=== PATIENT | female | born 1950 | race Caucasian/White ===

== ENCOUNTER 2018-08-13 11:40 | Inpatient (IN) | payer MEDICARE ==
[~2018-08-13] VITALS: Ht 167.6 cm; Wt 134.3 kg
[~2018-08-13 11:40] MED LIST: APRISO0.375 GM PO; ASPIR 8181 MG PO; ATORVASTATIN CA40 MG PO; B COMPLEX1 EACH PO; BENTYL20 MG PO; CALTRATE 600 W1 EACH PO; CITALOPRAM HBR40 MG PO; CLOPIDOGREL75 MG PO; DEMADEX20 MG PO; FERROCITE324 MG PO; FORTAMET1000 MG PO; HUMALOG MI100 UNIT/2 SQ; HYDROCODON-ACE1 EA11 PO; K DUR10 MEQ PO; LISINOPRIL20 MG PO; MAG-OXIDE400 MG PO; METOPROLOL SUCC50 MG PO; MICROZIDE12.5 MG PO; NEURONTIN300 MG PO; PANTOPRAZOLE SO20 MG PO; PEPCID40 MG PO; VALIUM5 MG PO
[2018-08-13 15:48] LABS: BASOPHILS # (AUTO) 0.1 (0.0-0.1); BASOPHILS % 0.5 % (0.0-1.0); EOSINOPHILS # (AUTO) 0.3 (0.0-0.4); EOSINOPHILS % 2.5 % (0.0-6.0); HEMATOCRIT 24.5 % (34.2-44.1); LYMPHOCYTES # (AUTO) 2.4 (1.0-3.2); LYMPHOCYTES % 20.3 % (18.0-39.1); MEAN CORPUSCULAR HEMOGLOBIN 15.8 pg (28-32); MEAN CORPUSCULAR HGB CONC 24.5 g/dL (31-35); MEAN CORPUSCULAR VOLUME 64.5 fL (81-99); MONOCYTES # (AUTO) 0.8 (0.2-0.8); MONOCYTES % 6.7 % (4.4-11.3); NEUTROPHILS # (AUTO) 8.1 (2.1-6.9); NEUTROPHILS % 69.4 % (38.7-80.0); PLATELET COUNT 368 x10e3/uL (140-360); RED CELL DISTRIBUTION WIDTH 22.5 % (11.7-14.4)
--- NOTE | 2018-08-13 15:48 | Diagnostic Imaging Report ---
A single frontal view of the chest. HISTORY: Low hemoglobin COMPARISON: None available. DISCUSSION: Portable technique, limits sensitivity of the exam. Soft tissue attenuation partially limits sensitivity of the exam, especially the lung bases. Tubes/Lines: None Lungs and pleura: The lungs are well inflated. No evidence of a consolidative pneumonia or pulmonary alveolar edema. No definite pleural effusion or pneumothorax is identified. Heart and mediastinum: The cardiac silhouette appears enlarged. Bones and soft tissues: Appear unremarkable, given this limited exam. IMPRESSION: 1. Probable cardiomegaly. 2. No acute radiographic abnormality, within the stated limitations. If further evaluation is warranted, recommend routine PA and lateral chest radiographs when feasible. Signed by: Dr. Yaron Najera D.O., M.M.M. on 08/13/2018 3:45 PM
--- NOTE | 2018-08-13 15:52 | NUR ---
JANINE FROM LAB CALLED TO [facility] 6.0/24.5. DR. PRAKASH INFORMED OF THIS WELL KARINA, RN PRIMARY NURSE FOR PT.
[2018-08-13 16:00] LABS: INR 0.96; PROTHROMBIN TIME 13.7 seconds (11.9-14.5)
[2018-08-13] MEDS ORDERED: ONDANSETRON HCL INJ 2MG/ML 2ML 2 MG/ML VIAL IV PRN (16:00)
[2018-08-13] MEDS ORDERED: SODIUM CHLORIDE 0.9% 1000ML 1,000 ML IV ONE (16:00)
[2018-08-13 16:01] LABS: PARTIAL THROMBOPLASTIN TIME 28.5 seconds (23.8-35.5)
--- NOTE | 2018-08-13 16:05 | Diagnostic Imaging Report ---
EXAM: CT of the abdomen and pelvis WITHOUT contrast HISTORY: Right flank pain, one week COMPARISON: None available. TECHNIQUE: The abdomen and pelvis were scanned utilizing a multidetector helical scanner. Coronal and sagittal reformats are available. PROTOCOL: Renal colic IV CONTRAST: None, which limits sensitivity and specificity of evaluation of the soft tissues and vascular structures. ORAL CONTRAST: None, which limits sensitivity and specificity of evaluation of the bowel. RADIATION DOSE: Total DLP: 845.35 mGy*cm Estimated effective dose: (DLP x 0.015 x size factor) Dose modulation, iterative reconstruction, and/or weight based adjustment of the mA/kV was utilized to reduce the radiation dose to as low as reasonably achievable. COMPLICATIONS: None FINDINGS: Soft tissue attenuation partially limits sensitivity of the exam. LOWER THORAX: Unremarkable. HEPATOBILIARY: No definite focal hepatic lesions. No biliary ductal dilatation. The gallbladder is not visualized, correlate for prior cholecystectomy. SPLEEN: No splenomegaly. Metallic densities at the hilum of the spleen, correlate for prior vascular intervention, associated beam hardening artifact partially limits regional evaluation. PANCREAS: No focal masses or ductal dilatation. ADRENALS: Fullness of the left adrenal gland, without a discrete well-defined nodule. KIDNEYS/URETERS: No hydronephrosis. Punctate calcification near the inferior pole of the left kidney. PELVIC ORGANS/BLADDER: The visualized pelvic organs appear unremarkable. PERITONEUM / RETROPERITONEUM: No free air or fluid. GI TRACT: On limited evaluation of the gastrointestinal tract, no dilation or wall thickening identified. The appendix is not visualized, correlate for prior cholecystectomy, but no pericecal inflammatory changes to suggest acute appendicitis. Postsurgical changes of the proximal stomach. LYMPH NODES: No pathologically enlarged lymph nodes. VESSELS: Diffuse scattered atherosclerotic vascular calcifications. BONES: No aggressive osseous lesion or acute fracture. Multilevel degenerative changes of the axial skeleton, most notably moderate facet arthrosis at L4-5 and L5-S1. SOFT TISSUES: Moderate diffuse muscle atrophy. IMPRESSION: 1. No acute CT abnormality, specifically no right renal stone or hydronephrosis. 2. Incidentally, a punctate nonobstructing left renal stone. Signed by: Dr. Yaron Najera D.O., M.M.M. on 08/13/2018 4:02 PM
[2018-08-13 16:06] LABS: ANION GAP 14.2 mmol/L (8-16); CALCIUM 8.8 mg/dL (8.4-10.2); CREATININE, SERUM 0.99 mg/dL (0.57-1.11); POTASSIUM 4.2 mmol/L (3.5-5.1)
[2018-08-13 16:13] LABS: CREATINE KINASE MB 0.5 ng/mL (0-5.0)
[2018-08-13] MEDS: PANTOPRAZOLE 40 MG 10ML VIAL IV SCH (17:00)
[2018-08-13 17:02] LABS: FERRITIN 5.3 ng/mL (4.63-204.00)
[2018-08-13 17:09] LABS: BILIRUBIN,URINE NEGATIVE (NEGATIVE); CLARITY,URINE CLEAR (CLEAR); COLOR,URINE YELLOW (YELLOW); KETONES,URINE NEGATIVE (NEGATIVE); LEUKOCYTE ESTERASE ,URINE NEGATIVE (NEGATIVE); NITRITE,URINE NEGATIVE (NEGATIVE); PROTEIN,URINE DIPSTICK NEGATIVE (NEGATIVE); URINE UROBILINOGEN 0.2 mg/dL (0.2 - 1)
--- OUTSIDE RECORDS SUMMARY | 2018-08-13 17:16 | XMS REPORT ---
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 Allergies, Adverse Reactions, Alerts This patient has no known allergies or adverse reactions. Medications This patient has no known medications. Results Test Description Test Time Test Comments Text Results Atomic Results Result Comments CT ABDOMEN/PELVIS WO 2018-08-13 15:45:00 [place] [id number] [place] [id number] Patient Name: PATO MORALES MR #: [id number] : 1950 Age/Sex: 68/F Req #: [id number] Adm Physician: Ordered by: JUAN JOSÉ NAJERA DOCUMENT IMPROVEMENT SPECIALIST Report #: [id number] Location: ER Room/Bed: Procedure: [id number] CT/CT ABDOMEN/PELVIS WO Exam Date: 08/13/18 Exam Time: 1500 REPORT STATUS: Signed EXAM: CT of the abdomen and pelvis WITHOUT contrast HISTORY: Right flank pain, one week COMPARISON: None available. TECHNIQUE: The abdomen and pelvis were scanned utilizing a multidetector helical scanner. Coronal and sagittal reformats are available. PROTOCOL: Renal colic IV CONTRAST: None, which limits sensitivity and specificity of evaluation of the soft tissues and vascular structures. ORAL CONTRAST: None, which limits sensitivity and specificity of evaluation of the bowel. RADIATION DOSE: Total DLP: 845.35 mGy*cm Estimated effective dose: (DLP x 0.015 x size factor) Dose modulation, iterative reconstruction, and/or weight based adjustment of the mA/kV was utilized to reduce the radiation dose to as low as reasonably achievable. COMPLICATIONS: None FINDINGS: Soft tissue attenuation partially limits sensitivity of the exam. LOWER THORAX: Unremarkable. HEPATOBILIARY: No definite focal hepatic lesions. No biliary ductal dilatation. The gallbladder is not visualized, correlate for prior cholecystectomy. SPLEEN: No splenomegaly. Metallic densities at the hilum of the spleen, correlate for prior vascular intervention, associated beam hardening artifact partially limits regional evaluation. PANCREAS: No focal masses or ductal dilatation. ADRENALS: Fullness of the left adrenal gland, without a discrete well-defined nodule. KIDNEYS/URETERS: No hydronephrosis. Punctate calcification near the inferior pole of the left kidney. PELVIC ORGANS/BLADDER: The visualized pelvic organs appear unremarkable. PERITONEUM / RETROPERITONEUM: No free air or fluid. GI TRACT: On limited evaluation of the gastrointestinal tract, no dilation or wall thickening identified. The appendix is not visualized, correlate for prior cholecystectomy, but no pericecal inflammatory changes to suggest acute appendicitis. Postsurgical changes of the proximal stomach. LYMPH NODES: No pathologically enlarged lymph nodes. VESSELS: Diffuse scattered atherosclerotic vascular calcifications. BONES: No aggressive osseous lesion or acute fracture. Multilevel degenerative changes of the axial skeleton, most notably moderate facet arthrosis at L4-5 and L5-S1. SOFT TISSUES: Moderate diffuse muscle atrophy. IMPRESSION: 1. No acute CT abnormality, specifically no right renal stone or hydronephrosis. 2. Incidentally, a punctate nonobstructing left renal stone. Signed by: Graeme WattsO., M.M.M. on 08/13/2018 4:02 PM Dictated By: PATRICIA NAJERA DO 1602 Transcribed By: JES on 08/13/18 1602 COPY TO: JUAN JOSÉ NAJERA NP CHEST SINGLE (NOT PORTABLE) 2018-08-13 15:43:00 [place] [address] Patient Name: PATO MORALES MR #: [id number] : 1950 Age/Sex: 68/F Req #: [id number] [facility] Physician: Ordered by: JUAN JOSÉ NAJERA NP Report #: [id number] Location: ER Room/Bed: Procedure: [id number] DX/CHEST SINGLE (NOT PORTABLE) Exam Date: 08/13/18 Exam Time: 1450 REPORT STATUS: Signed A single frontal view of the chest. HISTORY: Low hemoglobin COMPARISON: None available. DISCUSSION: Portable technique, limits sensitivity of the exam. Soft tissue attenuation partially limits sensitivity of the exam, especially the lung bases. Tubes/Lines: None Lungs and pleura: The lungs are well inflated. No evidence of a consolidative pneumonia or pulmonary alveolar edema. No definite pleural effusion or pneumothorax is identified. Heart and mediastinum: The cardiac silhouette appears enlarged. Bones and soft tissues: Appear unremarkable, given this limited exam. IMPRESSION: 1. Probable cardiomegaly. 2. No acute radiographic abnormality, within the stated limitations. If further evaluation is warranted, recommend routine PA and lateral chest radiographs when feasible. Signed by: Dr. Patricia Najera D.O., M.M.M. on 08/13/2018 3:45 PM Dictated By: PATRICIA NAJERA DO 1545 Transcribed By: TIAGO CONTRERAS on 08/13/18 1545 COPY TO: JUAN JOSÉ NAJERA NP
[2018-08-13 17:18] LABS: EPITHELIAL CELLS,URINE MODERATE /LPF
[2018-08-13] MEDS: HYDROCODONE/APAP 5MG-325MG TAB PO PRN ×2 (17:20→23:54)
[2018-08-13 19:37] VITALS: BP 140/61
[2018-08-13 20:00] VITALS: BP 140/61
--- NOTE | 2018-08-13 21:10 | NUR ---
PATIENT RECEIVED FROM EMERGENCY DEPARTMENT PER STRETCHER AT 1936; SHE'S ALERT AND ORIENTED X4, NO RESPIRATORY DISTRESS OBSERVED. SKIN INTEGRITY INTACT, BRUISE NOTED TO THE RIGHT HAND. 1+ PITTING EDEMA NOTED TO THE LOWER EXTREMITIES, NO ACTIVE BLEEDING OBSERVED UPON HEAD TO TOE ASSESSMENT. PATIENT DENIES PAIN, BLOOD TRANSFUSION INFUSING ORDERED AND NO ADVERSE EFFECT NOTED. ORIENTED TO SURROUNDINGS, CALL LIGHT WITHIN EASY REACH, WILL CONTINUE TO CLOSELY MONITOR THE PATIENT.
--- NOTE | 2018-08-13 22:16 | NUR ---
BLOOD TRANSFUSION COMPLETED WITHOUT ADVERSE EFFECT, PATIENT WAS ASSISTED TO THE RESTROOM BY STAFF NURSES AND NO DISTRESS NOTED.
[2018-08-13] MEDS ORDERED: SODIUM CHLORIDE 0.9% 250ML 250 ML ONE (23:05)
--- NOTE | 2018-08-13 23:31 | NUR ---
SECOND UNIT OF BLOOD TRANSFUSION STARTED, PRIMARY NURSE REMAINS WITH THE PATIENT FOR CLOSE OBSERVATION FOR THE FIRST 15 MINUTES.
[2018-08-14] VITALS (7 sets, daily range): BP systolic 141–159; BP diastolic 61–71
--- NOTE | 2018-08-14 02:25 | NUR ---
PATIENT SITTING AT THE SIDE OF THE BED, SHE REQUESTED THAT HER BED ALARM BE TURN OFF. BLOOD TRANSFUSION COMPLETED, NO ADVERSE EFFECT OBSERVED.
[2018-08-14 06:40] LABS: BASOPHILS # (AUTO) 0.1 (0.0-0.1); BASOPHILS % 0.8 % (0.0-1.0); EOSINOPHILS # (AUTO) 0.4 (0.0-0.4); EOSINOPHILS % 3.9 % (0.0-6.0); HEMATOCRIT 26.8 % (34.2-44.1); HEMOGLOBIN 7.1 g/dL (12.0-16.0); LYMPHOCYTES # (AUTO) 1.4 (1.0-3.2); LYMPHOCYTES % 15.6 % (18.0-39.1); MEAN CORPUSCULAR HEMOGLOBIN 17.8 pg (28-32); MEAN CORPUSCULAR HGB CONC 26.5 g/dL (31-35); MONOCYTES # (AUTO) 0.9 (0.2-0.8); MONOCYTES % 9.7 % (4.4-11.3); NEUTROPHILS # (AUTO) 6.3 (2.1-6.9); NEUTROPHILS % 69.4 % (38.7-80.0); PLATELET COUNT 299 x10e3/uL (140-360); RED CELL DISTRIBUTION WIDTH 24.6 % (11.7-14.4)
[2018-08-14 06:51] LABS: ALANINE AMINOTRANSFERASE 12 IU/L (0-55); ALBUMIN 2.8 g/dL (3.5-5.0); ALBUMIN/GLOBULIN RATIO 0.9 (0.8-2.0); ALKALINE PHOSPHATASE 126 IU/L (40-150); ANION GAP 12.9 mmol/L (8-16); BLOOD UREA NITROGEN 11 mg/dL (7-26); BUN/CREATININE RATIO 12 (6-25); CALCIUM 8.7 mg/dL (8.4-10.2); CARBON DIOXIDE 25 mmol/L (22-29); CHLORIDE 102 mmol/L (98-107); CREATININE, SERUM 0.91 mg/dL (0.57-1.11); EST GLOMERULAR FILTRATION RATE > 60 ML/MIN (60-); GLUCOSE 75 mg/dL (74-118); POTASSIUM 3.9 mmol/L (3.5-5.1); SODIUM 136 mmol/L (136-145)
--- NOTE | 2018-08-14 07:09 | NUR ---
DR CARLSON WAS ON THE UNIT TO SEE THE PATIENT, HE WAS MADE AWARE OF THE LAB RESULTS FOR THIS MORNING. NEW ORDERS RECEIVED.
[2018-08-14] MEDS ORDERED: NON-FORMULARY MEDICATION (Famotidine (Pepcid) 40 MG) PO SCH (07:30)
--- NOTE | 2018-08-14 07:31 | NUR ---
Received patient. Patient awake in bed resting at this time, no signs of distress. Bed in lowest position, wheels locked, side rails x2, call light in reach. Will continue to monitor.
--- NOTE | 2018-08-14 07:33 | History and Physical ---
This is a 68-year-old female that comes in with low H and H. HISTORY OF PRESENT ILLNESS: This is . Chantale Cantu who came to my office with extreme weakness, history of diabetes, history of hypertension, and was checked for anemia. Hemoglobin came back at 6.5. The patient was sent to the emergency room for possible transfusion and also for possible workup of anemia. The patient did have fatigue and tiredness, and also with history of taking aspirin and Plavix. PAST MEDICAL HISTORY: History of hypertension, history of uncontrolled diabetes mellitus, history of myocardial infarction in the past, history of coronary artery disease, history of chronic obstructive pulmonary disorder, history of low back pain, history of morbid obesity, history of smoking also. ALLERGIES: ALLERGIC TO SULFA AND CODEINE. SURGICAL HISTORY: History of skin cancer removal, history of cholecystectomy, tonsillectomy and adenoidectomy. MEDICATIONS: At home: 1. Aspirin 81 mg. 2. Atorvastatin 40 mg. 3. Calcium 600 mg daily. 4. Citalopram 40 mg daily. 5. Clopidogrel 75 mg daily. 6. Valium 5 mg daily. 7. Dicyclomine 20 mg daily. 8. Famotidine 40 mg. 9. Ferrous sulfate 324 mg daily. 10. Gabapentin 300 mg daily. 11. Hydrochlorothiazide 12.5 mg daily. 12. Hydrocodone 5 mg daily. 13. Insulin 70/25 quick pen 20 units twice a day. 14. Lisinopril 20 mg daily. 15. Magnesium oxide. 16. Mesalamine 0.375 mg ER capsule q.i.d. 17. Metformin 1000 mg. 18. Metoprolol 50 mg. 19. Potassium 10 mEq. 20. Furosemide 20 mg. 21. Vitamin B complex. The patient has a history of ulcerative colitis in the past and has been taking mesalamine too. FAMILY HISTORY: Positive for hypertension and hyperlipidemia. REVIEW OF SYSTEMS: Negative for chest pain. Positive for shortness of breath. No nausea, vomiting or diarrhea. No constipation. Positive for rectal bleeding. The patient has had 2 episodes in the last 2 weeks, small though. The patient has no diplopia and no blurry vision. No paresthesia and no hypoesthesia. No chest pains. PHYSICAL EXAMINATION GENERAL: Alert and oriented times 3. VITAL SIGNS: Temperature is 96.8, pulse of 76, respirations of 18, blood pressure is 150/64. HEENT: Normocephalic and atraumatic. Pupils are reactive to light and accommodation. CV: S1 and S2. Regular rate and rhythm. ABDOMEN: Tender in the epigastrium. Otherwise, no tenderness present. EXTREMITIES: No clubbing. Positive for trace edema. LABORATORY VALUES: Initial values are white count is 11.6, hemoglobin of 6, hematocrit of 24.5. Chemistry showed a sodium of 138, chloride of 103, BUN 13, creatinine 0.9, and GFR of 55. Iron panel: Iron was 15, TIBC 43%, saturation of 3%. Ferritin was 5.3. CK, CK-MB and troponin were all within normal limits. ASSESSMENT 1. Blood loss anemia, possibly rectal: An endoscopy is warranted. Will consult Dr. Beau Ramirez for colonoscopy. The patient will be started on Venofer at this time. Will need iron transfusion on an outpatient basis too. 2. Coronary artery disease: Will continue monitoring the patient's troponins. 3. Hypertension: Will restart her home medications. 4. Diabetes mellitus: Continue on insulin sliding scale. Also, restart on her hyperlipidemic agents. Further recommendations per clinical course. The patient also will get a clonidine patch for history of smoking. Further recommendations per clinical course. Will continue monitoring the patient along with consultants. Possibly will need outpatient based iron therapy too. Job#: [id number] KAREN
[2018-08-14 07:41] LABS: ANISOCYTOSIS MODE; HYPOCHROMASIA MODERATE; PLATELET ESTIMATE ADEQUATE; POLYCHROMASIA FEW; RBC MORPHOLOGY COMMENT ABNORMAL
[2018-08-14 07:42] LABS: PLATELET MORPHOLOGY COMMENT FEW LARGE; POIKILOCYTOSIS MODERATE
[2018-08-14] MEDS ORDERED: NON-FORMULARY MEDICATION (Citalopram Hydrobromide (Citalopram Hbr) 40 MG) PO SCH (09:00)
[2018-08-14] MEDS ORDERED: FERROUS FUMARATE 325 MG PO SCH (09:00)
[2018-08-14] MEDS ORDERED: NON-FORMULARY MEDICATION (Hydrochlorothiazide (Microzide) 12.5 MG) PO SCH (09:00)
[2018-08-14] MEDS ORDERED: NON-FORMULARY MEDICATION (Atorvastatin Calcium 40 MG) PO SCH (09:00)
[2018-08-14] MEDS ORDERED: METOPROLOL SUCCINATE 50 MG TAB XL PO SCH (09:00)
[2018-08-14] MEDS ORDERED: MAGNESIUM OXIDE 400 MG PO SCH (09:00)
[2018-08-14] MEDS ORDERED: METFORMIN HCL 1000 MG PO SCH (09:00)
[2018-08-14] MEDS ORDERED: TORSEMIDE 20 MG PO SCH (09:00)
[2018-08-14] MEDS: NICOTINE 21 MG/EA PATCH TOP PRN (09:10)
[2018-08-14] MEDS: IRON SUCROSE 100 MG in SODIUM CHLORIDE 0.9% 100 ML 100 ML IV SCH (09:37)
[2018-08-14] MEDS: LISINOPRIL 20 MG TAB PO SCH (09:37)
[2018-08-14] MEDS: GABAPENTIN 300 MG CAP PO SCH ×3 (09:37→21:39)
[2018-08-14] MEDS: FAMOTIDINE 20 MG TAB PO SCH ×2 (09:37→17:23)
[2018-08-14] MEDS: HYDROCHLOROTHIAZIDE 25 MG TAB PO SCH (09:37)
[2018-08-14] MEDS: TORSEMIDE 10 MG TAB PO SCH (09:37)
[2018-08-14] MEDS: MESALAMINE 0.375 GM CAPCR PO SCH ×4 (09:37→21:39)
[2018-08-14] MEDS: PANTOPRAZOLE 40 MG 10ML VIAL IV SCH ×3 (09:37→17:20)
[2018-08-14] MEDS: METFORMIN HCL 500 MG TAB PO SCH ×2 (09:37→17:20)
[2018-08-14] MEDS: POTASSIUM CHLORIDE 10MEQ EA PO SCH (09:37)
[2018-08-14] MEDS: CITALOPRAM HYDROBROMIDE 20 MG TAB PO SCH (09:37)
[2018-08-14] MEDS: MAGNESIUM OXIDE 400 MG TAB PO SCH (09:37)
[2018-08-14] MEDS: METOPROLOL SUCCINATE 25 MG TAB XL PO SCH ×2 (09:38→21:39)
[2018-08-14] MEDS: DIAZEPAM 5 MG TAB PO SCH (09:38)
[2018-08-14] MEDS: VITAMIN B COMPLEX PO SCH (09:48)
[2018-08-14] MEDS: HYDROCODONE/APAP 5MG-325MG TAB PO SCH (10:00)
--- NOTE | 2018-08-14 10:00 | NUR ---
Patient A/O X3, respirations even and unlabored on room air. Last BM 08/12/18, bowel sounds active. RAC 20 gauge IV saline lock at this time. Skin intact, non-pitting 1+ edema to BLE. Patient is up with assist. Will continue to monitor.
--- NOTE | 2018-08-14 19:00 | NUR ---
Received patient sitting on side of bed, aaox3 in stable condition. No needs voiced at this time. Dr. Ramirez recently in to see patient. Updated patient on plan of care, patient verbalized understanding. Bed locked and in lowest position, call light within easy reach. Will continue to monitor the patient closely.
--- NOTE | 2018-08-14 20:22 | Consultation ---
DATE OF CONSULTATION: August 14, 2018 GI CONSULT NOTE REFERRING PHYSICIAN: Glenn Farnsworth MD REASON FOR CONSULT: Symptomatic microcytic anemia. HISTORY OF PRESENTING ILLNESS: A 68-year-old very pleasant white female with past medical history of obesity status post gastric stapling surgery in 70s, type 2 diabetes, hypertension, who walked into Dr. Farnsworth's office with progressive shortness of breath, easy fatigability on minimal exertion. Blood work revealed significant anemia with a hemoglobin of 6.0, MCV 64.5. She denies any associated abdominal pain, melena, any episode of hematochezia. She is not on any blood thinner. She takes aspirin and Plavix for coronary artery disease. She has had upper endoscopy and colonoscopy more than 5 years ago. Patient does not know clear cut the reason why she has had a bidirectional endoscopy. She has a remote history of gastric ulcers in the past. She does not consume any NSAIDs chronically. She received 1 unit of packed red blood cells with which hemoglobin has gone up from 6 to 7.1. REVIEW OF SYSTEMS: Twelve-point system reviewed, symptomatology is limited as per HPI. PAST MEDICAL HISTORY: Type 2 diabetes, hypertension, hyperlipidemia, coronary artery disease, COPD, chronic low backache, history of morbid obesity. PAST SURGICAL HISTORY: Cholecystectomy, gastric stapling, tonsillectomy, adenoidectomy, some skin cancer removal. FAMILY HISTORY: Negative for any GI or GOVERNMENT DOCUMENTS LIBRARIAN malignancies. SOCIAL HISTORY: Former smoker. Seldom drinks alcohol. Never used any illicit drugs. ALLERGIES: PENICILLIN AND CODEINE. HOME MEDICATIONS: Aspirin, atorvastatin, calcium carbonate with vitamin D3, citalopram, clopidogrel, diazepam, dicyclomine, famotidine, ferrous fumarate, gabapentin, hydrochlorothiazide, [place], insulin lispro, lisinopril, Mag-Ox, mesalamine, metformin, metoprolol succinate, potassium chloride, torsemide, vitamin B complex. INPATIENT MEDICATIONS: Reviewed, as per MAR. PHYSICAL EXAMINATION: VITAL SIGNS: Temperature 97.7, pulse 70, respiration 20, blood pressure 145/71 to 159/67, oxygen saturation 99% on room air. GENERAL: Not in any acute distress. Obese body habitus. HEENT: Oral mucosa is moist. Anicteric sclerae. NECK: No neck or axillary adenopathy. CVS: S1 and S2 regular. LUNGS: Bilaterally grossly clear. ABDOMEN: Obese, soft, nondistended, nontender. No palpable mass or hernia. Positive bowel sounds. Healed midline surgical scar. EXTREMITIES: Warm. No leg edema. LABS: WBC 8.99, hemoglobin 7.1, hematocrit 26.8, platelet count 299,000. Electrolytes normal. Liver enzymes normal. PT 13.7, INR of 0.96. CT of the abdomen and pelvis without contrast showed: 1. No acute CT abnormality, specifically no right renal stone or hydronephrosis. 2. Incidentally a punctate nonobstructive left renal stone. Chest x-ray: 1. Probable cardiomegaly. 2. No acute radiographic abnormality within the stated limitations. If further evaluation is warranted, recommend routine PA and lateral chest radiograph when feasible. IMPRESSION: Symptomatic microcytic anemia certainly warrants further evaluation. PLAN: Will check iron profile, stool guaiac. Agreed for the blood transfusion to keep hemoglobin above 7. Will check stool guaiac for occult blood. NPO past midnight. Upper endoscopy tomorrow especially given the past history of peptic ulcer. Patient is very reluctant about any endoscopy. However, her daughter present in the room convinced her for considering upper endoscopy, finally she agreed. If upper endoscopy is negative, then she will be put on clear liquid diet and bowel prep tomorrow for colonoscopy on Sunday. However, this will only be performed if patient agrees for it. At this moment, she is reluctant for colonoscopy. I thank Dr. Elizabeth for allowing me to participate in the care of this patient. Job#: [id number]
[2018-08-14] MEDS: ATORVASTATIN 40 MG TAB PO SCH (21:39)
--- NOTE | 2018-08-14 21:56 | NUR ---
consent signed and placed to top of chart.
[2018-08-14] MEDS: HYDROCODONE/APAP 5MG-325MG TAB PO PRN (23:06)
[2018-08-15] VITALS (8 sets, daily range): BP systolic 103–132; BP diastolic 53–74
[2018-08-15 05:22] LABS: BASOPHILS # (AUTO) 0.1 (0.0-0.1); EOSINOPHILS # (AUTO) 0.3 (0.0-0.4); EOSINOPHILS % 3.6 % (0.0-6.0); HEMOGLOBIN 7.5 g/dL (12.0-16.0); LYMPHOCYTES # (AUTO) 2.1 (1.0-3.2); LYMPHOCYTES % 24.4 % (18.0-39.1); MEAN CORPUSCULAR HEMOGLOBIN 17.8 pg (28-32); MEAN CORPUSCULAR HGB CONC 26.8 g/dL (31-35); MEAN CORPUSCULAR VOLUME 66.5 fL (81-99); MONOCYTES # (AUTO) 0.7 (0.2-0.8); MONOCYTES % 7.6 % (4.4-11.3); NEUTROPHILS # (AUTO) 5.5 (2.1-6.9); NEUTROPHILS % 63.2 % (38.7-80.0); PLATELET COUNT 338 x10e3/uL (140-360); RED BLOOD COUNT 4.21 x10e6/uL (3.6-5.1); RED CELL DISTRIBUTION WIDTH 25.3 % (11.7-14.4)
[2018-08-15 05:43] LABS: ANION GAP 13.7 mmol/L (8-16); CALCIUM 8.9 mg/dL (8.4-10.2); CREATININE, SERUM 1.08 mg/dL (0.57-1.11); POTASSIUM 3.7 mmol/L (3.5-5.1)
--- NOTE | 2018-08-15 07:26 | Progress Note ---
DATE: Patient is here for symptomatic microcytic anemia. Patient had gotten transfused 2 units of PRBC yesterday. The patient's laboratory values today are white count is 8.6, hemoglobin 7.5, hematocrit of 28. The patient came with a hemoglobin of 6. Chemistries are sodium 134, potassium 3.7, BUN of 14, creatinine of 1.8, and EGFR of 50. The patient is asymptomatic at this time. N.p.o. for an EGD this morning. No nausea, vomiting or diarrhea. No hematochezia. No hemoptysis. Positive for no BMs in the last 2 days. PHYSICAL EXAMINATION VITAL SIGNS: Temperature is 98.1, pulse of 82, respirations of 20, blood pressure is 115/55, pulse oximetry of 94% on room air. HEENT: Normocephalic and atraumatic. Thyroid is present. CV: S1 and S2 normal. Tachycardic. ABDOMEN: Nontender and nondistended. EXTREMITIES: No clubbing. No cyanosis. Positive for edema. MEDICATIONS: The patient currently is on pain medication, metoprolol, atorvastatin, mesalamine, gabapentin, famotidine, metformin, Pantoprazole, and torsemide. The patient is also getting mag ox. LABS: As mentioned above. ASSESSMENT 1. Microcytic anemia. 2. Questionable blood loss: The patient has noted blood in the stool in the past. Possibly blood loss anemia. Needs esophagogastroduodenoscopy first. The patient is reluctant for colonoscopy. for colonoscopy if the endoscopy is negative. 3. Anemia, iron deficiency: The patient is on iron sucrose at this time. Will continue with that on a daily basis until the patient is discharged. 4. Low back pain: Continue with hydrocodone and acetaminophen after being n.p.o. 5. Diabetes mellitus: Continue with her regimen and also insulin sliding scale. The patient is on atorvastatin for hyperlipidemia. For hypertension, the patient is on lisinopril. Further recommendations per clinical course. Also, upon esophagogastroduodenoscopy for now, will continue monitoring the patient along with Dr. eBau Ramirez. The patient has been taken off her Plavix and her aspirin at this time for coronary disease. Further recommendations per clinical course. Will continue monitoring the patient. Job#: [id number] RI
--- NOTE | 2018-08-15 07:26 | NUR ---
Received patient, walking rounds complete. Patient awake in bed at this time, no signs of distress. Bed in lowest position, wheels locked, side rails up x2, call light in reach. Will continue to monitor.
[2018-08-15] MEDS: FAMOTIDINE 20 MG TAB PO SCH ×2 (07:30→16:22)
[2018-08-15] MEDS: METFORMIN HCL 500 MG TAB PO SCH ×2 (08:00→16:22)
[2018-08-15 08:23] LABS: HYPOCHROMASIA MODERATE; RBC MORPHOLOGY COMMENT ABNORMAL
[2018-08-15 08:24] LABS: ANISOCYTOSIS MODE; PLATELET ESTIMATE ADEQUATE; PLATELET MORPHOLOGY COMMENT NORMAL; POIKILOCYTOSIS MODERATE
[2018-08-15] MEDS: POTASSIUM CHLORIDE 10MEQ EA PO SCH (09:00)
[2018-08-15] MEDS: VITAMIN B COMPLEX PO SCH (09:00)
[2018-08-15] MEDS: GABAPENTIN 300 MG CAP PO SCH ×3 (09:00→21:26)
[2018-08-15] MEDS: TORSEMIDE 10 MG TAB PO SCH (09:00)
[2018-08-15] MEDS: DIAZEPAM 5 MG TAB PO SCH ×2 (09:00→14:03)
[2018-08-15] MEDS: MAGNESIUM OXIDE 400 MG TAB PO SCH (09:00)
[2018-08-15] MEDS: LISINOPRIL 20 MG TAB PO SCH (09:00)
[2018-08-15] MEDS: CITALOPRAM HYDROBROMIDE 20 MG TAB PO SCH ×2 (09:00→14:03)
[2018-08-15] MEDS: MESALAMINE 0.375 GM CAPCR PO SCH ×4 (09:00→21:26)
[2018-08-15] MEDS: HYDROCHLOROTHIAZIDE 25 MG TAB PO SCH (09:00)
[2018-08-15] MEDS: HYDROCODONE/APAP 5MG-325MG TAB PO SCH (09:00)
[2018-08-15] MEDS: METOPROLOL SUCCINATE 25 MG TAB XL PO SCH ×2 (09:00→21:26)
[2018-08-15] MEDS: IRON SUCROSE 100 MG in SODIUM CHLORIDE 0.9% 100 ML 100 ML IV SCH (12:15)
[2018-08-15] MEDS: PANTOPRAZOLE 40 MG 10ML VIAL IV SCH ×2 (12:15→16:22)
[2018-08-15] MEDS ORDERED: BISACODYL 5 MG TAB EC PO ONE (16:00)
[2018-08-15] MEDS ORDERED: PEG (High)/E-LYTE SOLN 4,000 ML BTL PO ONE (18:00)
[2018-08-15] MEDS: HYDROCODONE/APAP 5MG-325MG TAB PO PRN (18:27)
--- NOTE | 2018-08-15 19:35 | NUR ---
ASSISTED PATIENT TO SHOWER, AFTER LARGE LIQUID CLEAR ORANGE BM ON SELF. LINENS CHANGED. GOWN CHANGED. HOUSEKEEPING NOTIFIED. PATIENT BACK TO BED. PROVIDED BSC FOR URGENCY AND FREQUENCY. AT THIS TIME NO FURTHER NEEDS VOICED. BED LOCKED AND IN LOWEST POSITION, CALL LIGHT WITHIN EASY REACH. WILL CONTINUE TO MONITOR THE PATIENT CLOSELY.
[2018-08-15] MEDS: ATORVASTATIN 40 MG TAB PO SCH (21:26)
--- NOTE | 2018-08-15 23:59 | Progress Note ---
DATE: August 15, 2018 GI PROGRESS REPORT SUBJECTIVE: Patient is agreeable for colonoscopy. Therefore, she will have upper endoscopy as well as colonoscopy tomorrow. Denies any abdominal pain. REVIEW OF SYSTEMS: GENERAL: No fever or chills. CVS: No chest pain, palpitation. RESPIRATORY: No cough or expectoration. MEDICATIONS: Reviewed, as per SEP. PHYSICAL EXAMINATION: VITAL SIGNS: Temperature 97, pulse 75, respiration 19, blood pressure 132/74, oxygen saturation 95% on room air. GENERAL: Not in any acute distress. HEENT: Oral mucosa is moist. ABDOMEN: Soft, obese, nondistended, nontender. No palpable mass or hernia. Positive bowel sounds. LABS: Hemoglobin went up from 7.1 to 7.5. Electrolytes normal. Stool guaiac is heme positive. IMPRESSION: Iron deficiency anemia with heme-positive stool. PLAN: Clear liquid diet, bowel prep tonight. EGD as well as colonoscopy tomorrow. Job#: [id number]
[2018-08-16] VITALS: BP 107/48
--- NOTE | 2018-08-16 00:53 | NUR ---
patient sleeping, no s/s of pain or distress observed. will continue to monitor the patient closely.
[2018-08-16 04:00] VITALS: BP 101/49
[2018-08-16 05:49] LABS: BASOPHILS # (AUTO) 0.1 (0.0-0.1); BASOPHILS % 1.1 % (0.0-1.0); EOSINOPHILS # (AUTO) 0.3 (0.0-0.4); HEMATOCRIT 27.6 % (34.2-44.1); HEMOGLOBIN 7.7 g/dL (12.0-16.0); LYMPHOCYTES # (AUTO) 1.8 (1.0-3.2); LYMPHOCYTES % 23.2 % (18.0-39.1); MEAN CORPUSCULAR HEMOGLOBIN 18.2 pg (28-32); MEAN CORPUSCULAR HGB CONC 27.9 g/dL (31-35); MEAN CORPUSCULAR VOLUME 65.4 fL (81-99); MONOCYTES # (AUTO) 0.8 (0.2-0.8); MONOCYTES % 9.9 % (4.4-11.3); NEUTROPHILS # (AUTO) 4.9 (2.1-6.9); NEUTROPHILS % 61.4 % (38.7-80.0); PLATELET COUNT 340 x10e3/uL (140-360); RED BLOOD COUNT 4.22 x10e6/uL (3.6-5.1); RED CELL DISTRIBUTION WIDTH 26.5 % (11.7-14.4)
[2018-08-16 06:06] LABS: ANION GAP 14.6 mmol/L (8-16); CALCIUM 8.9 mg/dL (8.4-10.2); CREATININE, SERUM 1.05 mg/dL (0.57-1.11); POTASSIUM 3.6 mmol/L (3.5-5.1)
--- NOTE | 2018-08-16 06:53 | Progress Note ---
DATE: Patient is here for symptomatic anemia, microcytic. Patient is agreeable for colonoscopy and endoscopy today, which will be done later today. Currently, reluctantly drinking the GoLYTELY. Patient is otherwise asymptomatic. Did have a good dinner according to her yesterday. No chest pains. No shortness of breath. No nausea, vomiting. Diarrhea positive. OBJECTIVE VITALS: Temperature 97.4, pulse of 81, blood pressure is 101/49, pulse oximetry is 94% on room air. HEENT: Normocephalic and atraumatic. Pupils are reactive to light and accommodation. CV: S1 and S2 normal. Regular rate and rhythm. ABDOMEN: Nontender and nondistended. EXTREMITIES: No clubbing. No cyanosis. No edema. LABORATORY VALUES: Today, white count is 7.94, hemoglobin is stable at 7.7, hematocrit of 27.6, and platelet count of 340,000. The patient's chemistries are sodium of 137, BUN of 12, creatinine of 1.05, is 52. Glucoses have been trending normal. MEDICATIONS: Continued on metoprolol, atorvastatin, mesalamine, gabapentin, hydrocodone, metformin, famotidine, Pantoprazole, citalopram, Valium as needed. The patient is on iron sucrose daily IV. Nicotine patch, torsemide, hydrochlorothiazide, and mag oxide. ASSESSMENT 1. Acute microcytic anemia, symptomatic with fatigue and tiredness. 2. Possible gastrointestinal blood loss secondary to rectal bleeding. 3. History of hypertension. 4. History of coronary artery disease. 5. History of hyperlipidemia. 6. History of morbid obesity with possible sleep apnea. 7. Depression. PLAN: Do colonoscopy and endoscopy today for iron deficiency. Will continue her on iron sucrose. Continue with her diabetic medications, hypertensive medications and other cardiovascular medications. Further recommendations depending on the EGD and endoscopy results. Will follow the patient along with Dr. Villasenor and possible discharge depending on her H and H status, and also endoscopy findings. Job#: [id number] KAREN
[2018-08-16] MEDS: FAMOTIDINE 20 MG TAB PO SCH ×2 (07:30→16:56)
[2018-08-16 07:57] VITALS: BP 133/56
[2018-08-16 08:00] VITALS: BP 133/56
[2018-08-16] MEDS: METFORMIN HCL 500 MG TAB PO SCH ×2 (08:00→16:57)
[2018-08-16] MEDS: MESALAMINE 0.375 GM CAPCR PO SCH ×3 (09:00→16:57)
[2018-08-16] MEDS: DIAZEPAM 5 MG TAB PO SCH (09:00)
[2018-08-16] MEDS: CITALOPRAM HYDROBROMIDE 20 MG TAB PO SCH (09:00)
[2018-08-16] MEDS: LISINOPRIL 20 MG TAB PO SCH (09:00)
[2018-08-16] MEDS: POTASSIUM CHLORIDE 10MEQ EA PO SCH (09:00)
[2018-08-16] MEDS ORDERED: PANTOPRAZOLE 40 MG 10ML VIAL IV SCH (09:00)
[2018-08-16] MEDS: GABAPENTIN 300 MG CAP PO SCH ×2 (09:00→16:00)
[2018-08-16] MEDS: VITAMIN B COMPLEX PO SCH (09:00)
[2018-08-16] MEDS: HYDROCODONE/APAP 5MG-325MG TAB PO SCH (09:00)
[2018-08-16] MEDS: HYDROCHLOROTHIAZIDE 25 MG TAB PO SCH (09:00)
[2018-08-16] MEDS: MAGNESIUM OXIDE 400 MG TAB PO SCH (09:00)
[2018-08-16] MEDS: TORSEMIDE 10 MG TAB PO SCH (09:00)
[2018-08-16] MEDS: METOPROLOL SUCCINATE 25 MG TAB XL PO SCH (09:15)
[2018-08-16 09:20] LABS: ANISOCYTOSIS SLIGHT; HYPOCHROMASIA MODERATE; PLATELET ESTIMATE ADEQUATE; PLATELET MORPHOLOGY COMMENT FEW LARGE; RBC MORPHOLOGY COMMENT NORMAL; TOXIC GRANULATION SLIGHT
[2018-08-16] MEDS: IRON SUCROSE 100 MG in SODIUM CHLORIDE 0.9% 100 ML 100 ML IV SCH (09:20)
--- NOTE | 2018-08-16 09:33 | NUR ---
PT REPORTS STOOL IS CLEAR, NURSE UNABLE TO SEE AT THIS TIME DUE TO PT FLUSHED, PT EDUCATED TO LET NURSE SEE NEXT STOOL , PT VERBALIZED UNDERSTANDING,
--- NOTE | 2018-08-16 09:36 | NUR ---
PT EDUCATED TO NOT EAT OR DRINK ANYTHING ELSE, PT VERBALIZED UNDERSTANDING
[2018-08-16] MEDS: NICOTINE 21 MG/EA PATCH TOP PRN (10:31)
--- NOTE | 2018-08-16 12:35 | NUR ---
PT WHEELED OFF UNIT FOR EGD/COLONOSCOPY, NO CHANGE IN CONDITION
[2018-08-16 12:51] VITALS: BP 155/61
[2018-08-16] MEDS ORDERED: FENTANYL CITRATE/PF 100MCG/2 ML INJ ONE (13:35)
--- NOTE | 2018-08-16 14:07 | NUR ---
CM WENT TO SEE PATIENT FOR IMM AND INITIAL INTERVIEW. PATIENT OUT FOR PROCEDURE. CM TO FOLLOW UP.
--- NOTE | 2018-08-16 15:30 | NUR ---
BACK IN ROOM VIA BED, PT REQUESTING FOOD AND STATES MD RUBIO SAID SHE COULD GO HOME, TELEPHONED MD RUBIO TO CLARIFY IF PT CAN GO HOME SINCE THERE IS NO ORDER, AWAITING CALL BACK
--- NOTE | 2018-08-16 16:27 | NUR ---
SPOKE WITH MD RUBIO, ORDERS NOTED TO DISCHARGE HOME FROM HIS STANDPOINT, TELEPHONED MD CARLSON FOR POSSIBLE DISCHARGE ORDERS, AWAITING CALL BACK
[2018-08-16 16:49] VITALS: BP 135/60
--- NOTE | 2018-08-16 16:58 | NUR ---
PT MADE AWARE THAT STILL AWAITING CALL BACK FROM MD CARLSON FOR DISCHARGE, PT REMOVED TELEMETRY, REQUESTING IV OUT, AGAIN EDUCATED THAT MD CARLSON HAS TO GIVE A DISCHARGE ORDER BEFORE SHE CAN BE DISCHARGED, PT VERBALIZED UNDERSTANDING
--- NOTE | 2018-08-16 17:43 | NUR ---
SPOKE WITH MD CARLSON, ORDERS NOTED FOR DISCHARGE, DISCHARGE INSTRUCTIONS REVIEWED WITH PT, VERBALIZED UNDERSTANDING, AWAITING RIDE FOR DISCHARGE
[2018-08-16] MEDS ORDERED: PROPOFOL IV EMULSION 10 MG/ML 50 ML VIAL ONE (18:24)
--- NOTE | 2018-08-16 18:35 | NUR ---
PT WHEELED OFF UNIT VIA WC FOR DISCHARGE, NO CHANGE IN CONDITION
== END 2018-08-16 18:32 | disposition home or self-care (01) | DRG 378 ==
LOC: ER 11:40 → ERHOLD 15:53 → MED/SURG 19:35
PROVIDERS: ADMIT Family Medicine; ATTEND Family Medicine
PROC: 0DB98ZX Excision of Duodenum, Via Natural or Artificial Opening Endoscopic, Diagnostic (ICD-10-PCS; principal; 2018-08-13)
PROC: 0DB88ZX Excision of Small Intestine, Via Natural or Artificial Opening Endoscopic, Diagnostic (ICD-10-PCS; 2018-08-13)
PROC: 0DB68ZX Excision of Stomach, Via Natural or Artificial Opening Endoscopic, Diagnostic (ICD-10-PCS; 2018-08-13)
PROC: 30233N1 Transfusion of Nonautologous Red Blood Cells into Peripheral Vein, Percutaneous Approach (ICD-10-PCS; 2018-08-13)
PROC: 0DJD8ZZ Inspection of Lower Intestinal Tract, Via Natural or Artificial Opening Endoscopic (ICD-10-PCS; 2018-08-16)
DX: K92.2 Gastrointestinal hemorrhage, unspecified (principal); Z68.42 Body mass index [BMI] 45.0-49.9, adult; I25.10 Atherosclerotic heart disease of native coronary artery without angina pectoris; E11.9 Type 2 diabetes mellitus without complications; Z79.4 Long term (current) use of insulin; E78.5 Hyperlipidemia, unspecified; F17.210 Nicotine dependence, cigarettes, uncomplicated; K31.4 Gastric diverticulum; K31.7 Polyp of stomach and duodenum; K29.70 Gastritis, unspecified, without bleeding; G47.33 Obstructive sleep apnea (adult) (pediatric); F32.9 Major depressive disorder, single episode, unspecified; D50.0 Iron deficiency anemia secondary to blood loss (chronic); M54.5 Low back pain; I51.7 Cardiomegaly; K57.90 Diverticulosis of intestine, part unspecified, without perforation or abscess without bleeding; K64.8 Other hemorrhoids
CPT/HCPCS: 36415; 43239; 45378; 71045; 74176; 80048; 80053; 81001; 82270; 82550; 82553; 82728; 82948; 83540; 84466; 84484; 85025; 85610; 85730; 86850; 86900; 86920; 88305; 88312; 93005; 99284; J1756; J2405; J7030; J7050; P9016

== ENCOUNTER → 2018-09-24 | Outpatient (CLI) | payer OTHER ==
--- NOTE | 2018-09-24 17:50 | Diagnostic Imaging Report ---
FLUOROSCOPIC SMALL BOWEL SERIES TIN CAN FEEDER(S): Ankur Vaz MD Indication: Iron deficiency anemia due to chronic blood loss Comparison: CT abdomen/pelvis 08/13/2018. Radiation Dose: Total dose: 49.1 mGy Total fluoroscopy time: 0.6 minutes Procedure: Small bowel follow through exam was performed using oral barium. Preliminary image was obtained before administration of contrast and serial overhead images were obtained after administration of oral barium. Fluoroscopy was performed and spot images were obtained. DISCUSSION: BODY TECHNICIAN: The bowel gas pattern is non-obstructive. No acute bony abnormality. STOMACH: Unremarkable mucosal pattern. SMALL BOWEL: Bulb and sweep are normal. Duodenal-jejunal junction is in the normal expected position. Small bowel loops are normal in caliber and distribution. There is no evidence of fistula, mucosal changes, stricture or dilation. The transit time was within normal limits. Spot image of the terminal ileum was unremarkable. COLON: Filling defects within the proximal colon likely reflect stool contents. No evidence of stricture or specific evidence of mass. IMPRESSION: Unremarkable fluoroscopic small bowel series. Signed by: Dr. Ankur Vaz MD on 09/24/2018 5:47 PM
== END ==
LOC: DX 07:29
PROVIDERS: ATTEND Internal Medicine Gastroenterology
DX: D50.0 Iron deficiency anemia secondary to blood loss (chronic) (principal)
CPT/HCPCS: 74250

== ENCOUNTER → 2018-12-03 | Outpatient (CLI) | payer MEDICARE ==
--- NOTE | 2018-12-03 15:51 | Diagnostic Imaging Report ---
Lumbar spine series, 5 views. History: Pain. Comparison: None available. Discussion: The paraspinal soft tissues are unremarkable. The alignment of the lumbar spine is normal. There is no evidence of fracture, spondylolisthesis, or spondylolysis. There is mild diffuse disc space narrowing with osteophytosis and posterior facet sclerosis. IMPRESSION: Degenerative changes throughout the lumbar spine. Signed by: Choco Craig on 12/03/2018 3:47 PM
--- NOTE | 2018-12-03 15:53 | Diagnostic Imaging Report ---
Right hip, 2 views. Right femur, 2 views. History: Right hip pain. Findings: Vascular calcifications are present. Bone mineralization is normal. There is no evidence of fracture or dislocation. There are no lytic or sclerotic lesions. There is joint space narrowing and osteophytosis at the right hip and knee joints. IMPRESSION: Right hip and knee DJD. No acute osseous abnormality. Signed by: Choco Craig on 12/03/2018 3:49 PM
== END ==
LOC: RAD 13:57
PROVIDERS: ATTEND Family Medicine
DX: M54.5 Low back pain (principal); M54.16 Radiculopathy, lumbar region; M25.551 Pain in right hip
CPT/HCPCS: 72110